=== PATIENT | female | born 1960 | race Caucasian/White ===

== ENCOUNTER → 2016-10-31 | Outpatient (CLI) | payer BC ==
[~2016-10-31] MED LIST: AMBIEN10 MG PO; FLEXERIL10 MG PO; IBUPROFEN800 MG PO; LEVOTHYROXINE75 MC1 PO; MULTI-VITAMIN1 EACH PO; MULTIVITAMINS1 EAC3 PO; NEURONTIN600 MG PO; NORCO 5/325 TAB1 TAB PO; PREDNISONE PO; TOPROL XL PO; VICODIN 5/1 TAB 5/50 PO
--- NOTE | ~2016-10-31 | US17 ---
[facility] A Service of [facility] / [facility] RADIOLOGY TEXT RESULTS PATIENT: VAL MARTIN LOCATION: [facility] : 60 UNIT #: [id number] AGE: [address]: Nick Sood MD SEX: F ORDER DR: [id number] [facility] [address] [place], [place] [address] [id number] O MR#: [id number] Acc #: [id number] NAME: VAL MARTIN. : 1960 SEX: F STUDY DATE/TIME: 10/31/2016 14:33 UNIT: [facility] ROOM: STUDY DESCRIPTION: US Breast Bilateral Attending Physician: Nick Sood M.D. Ordering Physician: Nick Sood M.D. Primary Care Physician: Nick Sood M.D. MEDICAL IMAGING REPORT This report is preliminary unless electronic signature is present EXAM Bilateral breast ultrasound COMPARISON Bilateral diagnostic mammogram on the same date as well screening mammogram June 16, 2015. INDICATIONS 56-year-old female with right nipple and subareolar breast pain and burning. Patient reports a history of shingles involving the right anterior chest wall just below the breast approximately 5 months ago. Patient also has a persistent mass in the 6 o'clock left breast on mammography. Further imaging evaluation is indicated. FINDINGS/IMPRESSION Please see separately dictated report of bilateral diagnostic mammography on the same day for full sonographic findings in both breasts today as well as final impression and recommendations. BIRADS: 2 Benign finding. Dictated by... Phan Hickey M.D. THIS IS AN ELECTRONICALLY VERIFIED REPORT Phan Hickey M.D. at 11/01/2016 7:27 AM Adrian TD: 11/01/2016 06:49 JOB #: [id number] MEDICAL IMAGING REPORT [facility] A Service of [facility] / [facility] RADIOLOGY TEXT RESULTS PATIENT: VAL MARTIN LOCATION: [facility] : 60 UNIT #: [id number] AGE: [address]: Nick Sood MD SEX: F ORDER DR: COPY
--- NOTE | ~2016-10-31 | MY6 ---
[facility] A Service of [facility] & [facility] RADIOLOGY TEXT RESULTS PATIENT: VAL MARTIN LOCATION: [facility] : 60 UNIT #: [id number] AGE: [address]: Nick Sood MD SEX: F ORDER DR: [id number] [facility] [address]. [place], [place] [address] [id number] O MR#: [id number] Acc #: [id number] NAME: VAL MARTIN. : 1960 SEX: F STUDY DATE/TIME: 10/31/2016 13:44 UNIT: [facility] ROOM: STUDY DESCRIPTION: MY Mammogram Dx Dig Ryan Attending Physician: Nick Sood M.D. Ordering Physician: Nick Sood M.D. Primary Care Physician: Nick Sood M.D. MEDICAL IMAGING REPORT This report is preliminary unless electronic signature is present EXAM Bilateral digital diagnostic mammogram. COMPARISON Screening mammogram dated June 16, 2015. INDICATIONS 56-year-old female with a right breast asymmetry seen in the middle third along the posterior nipple line on screening mammography of June 16, 2015, as well as a separate suspected mass in the 6 o'clock middle third of the left breast on screening mammography of June 16, 2015. Patient is just now presenting for workup of these findings and also the patient reports right nipple and subareolar pain and burning. The patient had a recent bout of shingles involving the right chest wall including just below the right breast approximately 5 months ago. FINDINGS Spot compression MLO as well as full field CC, MLO and ML views of the right breast were obtained. Spot compression CC and MLO views of the left breast were obtained in addition to full field CC and MLO views and ML view of the left breast. Rolled medial and rolled lateral CC views of the left breast are also performed. The finding of initial concern in the right breast does not persist consistent with summation artifact of normal fibroglandular tissue. There are scattered fibroglandular densities. There are no suspicious findings in the right breast. In the left breast, the only persistent finding is an oval circumscribed mass measuring 8 mm x 5 mm x 6 mm at the junction of the anterior and middle thirds of the 6 o'clock left breast approximately 3 cm from the nipple. [facility] A Service of [facility] / [facility] RADIOLOGY TEXT RESULTS PATIENT: VAL MARTIN LOCATION: [facility] : 60 UNIT #: [id number] AGE: [address]: Nick Sood MD SEX: F ORDER DR: Sonographic evaluation was performed for further characterization of this mass as well as to evaluate the patient's right nipple and subareolar pain. Sonographic evaluation in subareolar and periareolar right breast demonstrated a simple cyst at 6 o'clock 2 cm from the nipple measuring 7 mm x 8 mm x 3 mm with a lobular shape. This is benign. Sonographic evaluation of the subareolar right breast was otherwise negative. In the left breast 6 o'clock position, 3 cm from the nipple, there is a simple cyst measuring 7 mm x 3 mm x 5 mm, corresponding in size and location to the mammographic mass. IMPRESSION 1. No mammographic or sonographic evidence of malignancy in the right breast. The patient was counseled on possible treatments of breast pain including vitamin E supplementation. 2. No mammographic or sonographic evidence of malignancy in the left breast. The persistent mammographic mass corresponds to a benign simple cyst. In the absence of new breast complaints, continued annual screening mammography and clinical breast exam are recommended. Findings and recommendations were discussed with the patient today. Patients over the age of 40 are entered into a reminder system with target due date for the next mammogram. A result letter will also be sent to the patient. BIRADS: 2 Benign finding. Dictated by... Phan Hickey M.D. THIS IS AN ELECTRONICALLY VERIFIED REPORT Phan Hickey M.D. at 11/01/2016 12:33 PM TERRY/chris TD: 11/01/2016 07:25 JOB #: [id number] MEDICAL IMAGING REPORT COPY
== END | disposition home or self-care (01) ==
LOC: CMAM 12:21
DX: N64.4 Mastodynia (principal); R92.8 Other abnormal and inconclusive findings on diagnostic imaging of breast; N60.01 Solitary cyst of right breast
CPT/HCPCS: 76641; G0204

== ENCOUNTER → 2017-04-02 | Day surgery (SDC) | payer BC ==
--- NOTE | ~2017-04-02 | OR ---
Unit #: [id number] #: [id number] Patient: VAL MARTIN [id number] [address] [address] [id number] O MR#: [id number] NAME: VAL MARTIN ROOM: Date of Procedure: 04/02/2017 Admission Date: 04/02/2017 Surgeon: Clark Martinez M.D. : 1960 Attending Physician: Clark Martinez M.D. Primary Care Physician: Nick Sood M.D. OPERATIVE REPORT PREOPERATIVE DIAGNOSES Personal history of colon polyps and family history of colon cancer in the patient's father and brother. PROCEDURES PERFORMED Colonoscopy and polypectomy. POSTOPERATIVE DIAGNOSES 1. The patient had 2 sessile polyps in the descending colon. These were 4 and 7 mm each. Both were removed using snare polypectomy, retrieved and sent for histology. 2. Moderate pandiverticulosis. 3. Rest of the examination up to cecum and terminal ileum was normal. The quality of the prep was excellent. RECOMMENDATIONS 1. Follow up results of polyp histology. 2. Consider repeat colonoscopy in 5 years. SEDATION USED MAC. DESCRIPTION OF PROCEDURE Following detailed explanation of potential risks and complications of a colonoscopy, namely perforation, bleeding, and complications related to sedation, the patient was brought to GI lab and laid in the left lateral decubitus position. A digital rectal examination was performed, which was normal. Lubricated tip of the Olympus video colonoscope was inserted through the anus and advanced under direct vision. The scope was advanced, past rectosigmoid into descending colon. Multiple medium-sized diverticula were noted in this area. The scope tip was then navigated all the way up to cecum with visualization of the ileocecal valve and the appendiceal orifice. Preparation was excellent with good visualization and photodocumentation was obtained. Last several inches of the terminal ileum also visualized after intubation of the ileocecal valve and appeared normal. Successive segments of the colonic mucosa were examined upon withdrawal. The patient was noted to have 2 sessile polyps in the descending colon. These were 4 and 7 mm each. Both were removed using snare polypectomy. They were retrieved and sent for histology. No additional polyps noted. The patient also had evidence of moderate pandiverticulosis. The patient did not have any internal hemorrhoids at anal verge. The scope was then withdrawn. The patient returned to Unit #: [id number] #: [id number] Patient: VAL MARTIN [facility]. She tolerated the procedure without any postprocedure complications. Dictated by... Soha Shearer TD: 04/02/2017 15:51 JOB #: [id number] OPERATIVE REPORT Page 1 of 1 X Clark Martinez MD PROCEDURE OPERATIVE NOTE
== END | disposition home or self-care (01) ==
LOC: COPS 10:13
DX: Z12.11 Encounter for screening for malignant neoplasm of colon (principal); D12.4 Benign neoplasm of descending colon; K57.30 Diverticulosis of large intestine without perforation or abscess without bleeding; E66.9 Obesity, unspecified; F17.210 Nicotine dependence, cigarettes, uncomplicated; Z85.038 Personal history of other malignant neoplasm of large intestine; Z80.0 Family history of malignant neoplasm of digestive organs; Z88.0 Allergy status to penicillin; Z79.899 Other long term (current) drug therapy; Z68.39 Body mass index [BMI] 39.0-39.9, adult; Z90.49 Acquired absence of other specified parts of digestive tract; Z98.51 Tubal ligation status; Z90.710 Acquired absence of both cervix and uterus; Z98.890 Other specified postprocedural states
CPT/HCPCS: 88305; J2250

== ENCOUNTER → 2017-04-16 | Outpatient (CLI) | payer BC ==
--- NOTE | ~2017-04-16 | MR113 ---
[facility] A Service of [facility] & [facility] RADIOLOGY TEXT RESULTS PATIENT: VAL MARTIN LOCATION: [facility] : 60 UNIT #: [id number] AGE: [address]: Livan Godinez PA-C SEX: F ORDER DR: [id number] [address] [address] [id number] O MR#: [id number] Acc #: [id number] NAME: VAL MARTIN : 1960 SEX: F STUDY DATE/TIME: 04/16/2017 13:28 UNIT: [facility] ROOM: STUDY DESCRIPTION: MR Lumbar Wo Contrast Attending Physician: Livan Godinez P.A.-C. Referring Physician: Livan Godinez P.A.-C. Ordering Physician: Livan Godinez P.A.-C. Primary Care Physician: Nick Sood M.D. MRI CENTER REPORT This report is preliminary unless electronic signature is present. EXAM MRI of the lumbar spine without contrast dated 04/16/2017 COMPARISON MRI of the lumbar spine without contrast dated 03/09/2014. HISTORY Increased low back pain for 2 months. Pain extends into the left lower extremity now. Pain used to extend to the right lower extremity 3 years ago. Degenerative disc disease. FINDINGS Multisequence, multiplanar imaging of the lumbar spine was obtained without contrast. There appears to be mild leftward curvature of the lumbar spine with the apex at L3. It was not as well seen on the prior study from 3 years ago. Edematous changes are noted at the inferior and superior endplates of L5. It could be positional. Correlate clinically. Vertebral body heights and alignment are preserved. No acute fracture or subluxation is seen. Conus terminates at L1-2. Signal of conus and cauda equina are within normal limits. Pre- and paravertebral soft tissues do not demonstrate any significant abnormality. L1-2: Concentric disc bulge with mild inferior bilateral neural foraminal encroachment. Suspicious small right central protrusion. Borderline-sized canal. Minimal inferior bilateral neural foraminal encroachment without nerve impingement. Stable. L2-3: Moderate disc bulge which is asymmetrically prominent in bilateral foraminal to extraforaminal regions particularly in the right. Mild inferior bilateral neural foraminal narrowing is seen with mild bilateral facet changes. Borderline size to mild canal stenosis. Stable. STS. [facility] A Service of [facility] RADIOLOGY TEXT RESULTS PATIENT: VAL MARTIN LOCATION: [facility] : 60 UNIT #: [id number] AGE: [address]: Livan Godinez PA-C SEX: F ORDER DR: L3-4: Concentric disc bulge with superimposed bilateral foraminal to extraforaminal broad-based protrusions, worse on the right. Mild bilateral facet changes are noted with mild canal stenosis and mild bilateral neural foraminal narrowing. Stable. L4-5: Concentric disc bulge with superimposed umwbf-lh-ogoz subarticular broad-based disc protrusion, more prominent on the right side, slightly worse when compared to the prior study. Mild right lateral recess encroachment, eryh-sr-gqyhjluy canal stenosis and mild inferior bilateral neural foraminal narrowing are present. L5-S1: Disc osteophyte complex which is asymmetrically prominent in the left foraminal to extraforaminal region. Mild bilateral facet changes are noted. There is mild to moderate left neural foraminal narrowing. Stable. IMPRESSION 1. When compared to the prior study, there appears to be mild worsening at L4-5 with prominent aimkc-px-kdfg subarticular broad-based disc protrusion. Ttpz-lt-zgzelrfi canal stenosis is seen at L4-5 with associated mild bilateral neural foraminal narrowing. 2. Degenerative changes at the other levels appear to be relatively stable. 3. No fracture, subluxation, or significant bone edema is seen. Minimal endplate edematous changes are noted at L5-S1 and along the posterosuperior endplate of L5. Dictated by... Michael Tyler M.D. THIS IS AN ELECTRONICALLY VERIFIED REPORT Michael Tyler M.D. at 04/17/2017 4:41 PM CPR/aa TD: 04/17/2017 13:09 JOB #: [id number] MRI CENTER REPORT Page 1 of 1
== END | disposition home or self-care (01) ==
LOC: SMRI 04-09 13:45
DX: M51.17 Intervertebral disc disorders with radiculopathy, lumbosacral region (principal); M41.9 Scoliosis, unspecified; M51.16 Intervertebral disc disorders with radiculopathy, lumbar region; M48.06 Spinal stenosis, lumbar region
CPT/HCPCS: 72148